=== PATIENT | male | born 1980 | race Caucasian/White ===

== ENCOUNTER 2016-08-17 16:13 | Emergency (ER) | payer BC, OTHER ==
[~2016-08-17] VITALS: Ht 180.3 cm; Wt 100.0 kg
[2016-08-17 16:31] VITALS: Ht 180.3 cm; Wt 100.0 kg
[2016-08-17] MEDS ORDERED: SOD CHLORIDE 0.9% 1,000 ML IV STA (16:57)
[2016-08-17] MEDS ORDERED: morphine 4 MG/ML VIAL IV STA (16:57)
[2016-08-17] MEDS ORDERED: ONDANSETRON 4 MG INJ IV STA (16:57)
[2016-08-17 17:26] LABS: ADD SCAN DIFF NO
[2016-08-17 17:29] LABS: BASOPHILS % 0.4 % (0.0-2.0); EOSINOPHILS # 0.2 10^3/ul (0.0-0.5); EOSINOPHILS % 3.7 % (0.0-7.0); HEMATOCRIT 46.3 % (42.0-52.0); HEMOGLOBIN 15.8 g/dl (14.0-18.0); LYMPHOCYTES # 1.6 10^3/ul (0.8-2.9); LYMPHOCYTES % 30.6 % (15.0-51.0); MEAN CORPUSCULAR HEMOGLOBIN 29.5 pg (29.0-33.0); MEAN CORPUSCULAR HGB CONC 34.1 g/dl (32.0-37.0); MEAN CORPUSCULAR VOLUME 86.4 fl (82.0-101.0); MEAN PLATELET VOLUME 9.5 fl (7.4-10.4); MONOCYTE # 0.4 10^3/ul (0.3-0.9); MONOCYTES % 8.4 % (0.0-11.0); NEUTROPHIL # 2.9 10^3/ul (1.6-7.5); NEUTROPHILS % 56.7 % (39.0-77.0); PLATELET COUNT 221 10^3/UL (140-415); RED BLOOD COUNT 5.36 10^6/ul (4.70-6.10); RED CELL DISTRIBUTION WIDTH 12.1 % (11.5-14.5); WHITE BLOOD COUNT 5.1 10^3/ul (4.8-10.8)
[2016-08-17 17:37] LABS: ADD UMIC YES; URINE BILIRUBIN (Dip) NEGATIVE (NEGATIVE); URINE BLOOD (Dip) NEGATIVE (NEGATIVE); URINE COLOR YELLOW (YELLOW); URINE GLUCOSE (Dip) NEGATIVE (NEGATIVE); URINE KETONES (Dip) TRACE (NEGATIVE); URINE LEUKOCYTE ESTERASE (Dip) NEGATIVE (NEGATIVE); URINE NITRITE (Dip) NEGATIVE (NEGATIVE); URINE TOTAL PROTEIN (Dip) TRACE (NEGATIVE); URINE UROBILINOGEN (Dip) 1.0 E.U./dL (0.1-1.0)
[2016-08-17 17:50] LABS: MUCUS,URINE MANY; URINE RBCS 0-2 /HPF (0)
[2016-08-17 17:54] LABS: ALBUMIN 5.3 g/dl (3.3-4.9); ALBUMIN/GLOBULIN RATIO 1.82; BILIRUBIN,INDIRECT 0.7 mg/dl (0-1.1); BILIRUBIN,TOTAL 0.7 mg/dl (0.2-1.3); CALCIUM 9.1 mg/dl (8.4-10.2); CREATININE 0.88 mg/dl (0.61-1.24); TOTAL PROTEIN 8.2 g/dl (6.1-8.1)
--- NOTE | 2016-08-17 18:28 | RADRPT ---
PROCEDURE: CT Head without. CLINICAL INDICATION: Seizure. TECHNIQUE: The study was performed utilizing a multi-slice, multidetector CT scanner. Direct spira l 1 mm axial sections were obtained through the head without the use of intravenous contrast materia l. 1 or more of the following dose reduction techniques were utilized: Automated exposure control, adjustment of the mA and/or kV according to patient's size, iterative reconstruction technique. Co kiya and sagittal reformations were obtained. The images were reviewed on a PACS workstation. RADIATION DOSE: CTDIvol: 43.2 mGyDLP: 847.0 mGy-cm COMPARISON: No prior studies are available for comparison. FINDINGS: There is no intracranial hemorrhage, extra-axial fluid collection, mass lesion, midline shift or hyd rocephalus. The ventricles, sulci and cisterns are within normal limits. The white matter is unrem arkable. The harding-white matter differentiation is preserved. The basal cisterns are patent. The m idline structures are intact. The orbits, calvarium and extracranial soft tissues are normal in radha earance. The visualized paranasal sinuses, mastoid air cells and middle ear cavities are normally ae rated. IMPRESSION: 1. No acute intracranial abnormality. No intracranial hemorrhage, extra-axial fluid collection, ma ss lesion or hydrocephalous. RPTAT: HGAS .Wliiam Anderson MD, MD Date Time Electronically viewed and signed by .Wiliam Anderson MD, MD on 08/17/2016 18:27 .S/
--- NOTE | 2016-08-17 18:32 | RADRPT ---
PROCEDURE: CT scan of the abdomen and pelvis without IV contrast. CLINICAL INDICATION: Abdominal pain with nausea vomiting and diarrhea. TECHNIQUE: Thin section axial, coronal and sagittal images were performed through the abdomen and pelvis without contrast. Radiation Dose: CTDI: 19.2 and DLP: 1228 One or more of the following dose reduction techniques were used: - Automated exposure control. - Adjustment of the mA and/or kV according to patient size. Use of iterative reconstruction technique. COMPARISON: Chest x-ray 04/17/2016 06:18 a.m. FINDINGS: Soft tissues: Normal. Lungs and pleural spaces: There are peripheral areas of atelectasis in the right and left lower lobe s. No pulmonary nodule or pleural effusion is identified. Heart: The heart is normal in size. No pericardial effusion is identified. The liver, common bile duct and gallbladder: There is diffuse fatty infiltration of the liver which measures 17.7 cm AP. The gallbladder surgically removed. No hepatic mass or intrahepatic biliary du ctal dilatation is identified. Gastrointestinal: There is no hiatal hernia. The stomach is normal. The small bowel loops have a n ormal caliber. There is scattered fecal material and air in the colon. There is a tiny midline umb ilical hernia. There is small to 3 mm mesenteric nodules in the right upper abdomen. There are sma ll mesenteric lymph nodes in the upper middle third of the abdomen. There are small lymph nodes med ial to the cecum. The vermiform appendix is normal. Pancreas: Normal. Kidneys, bladder and adrenal glands : The adrenal glands and kidneys are unremarkable. The urinary bladder is normal. Spleen: The spleen is enlarged measuring 13.3 cm. Lymph nodes: No enlarged periportal and retroperitoneal lymph nodes are identified. No enlarged pel cecilia sidewall or inguinal lymph nodes are identified. There is a left inguinal hernia which contains fat. Reproductive system and pelvis : Prostate gland seminal vesicles are normal. Bony elements: There are degenerative osteophytes in the mid and lower lumbar spine. There is a Jennifer morl's node impinging on the dorsal super endplate of S1. There is a mild broad dorsal disk osteoph yte complex in conjunction with disk space narrowing at L4-5. There are small ventral osteophytes a t L4-5 and L5-S1. Vasculature: Normal. IMPRESSION: 1. Mild hepatosplenomegaly. 2. Status post cholecystectomy. 3. No acute intra-abdominal process is noted. 4. Normal vermiform appendix. RPTAT:AAJJ Calixto Marshall Physician Date Time Electronically viewed and signed by Calixto Marshall Physician on 08/17/2016 18:32 KATHY/
[2016-08-17] MEDS ORDERED: ONDA-43 PO (19:05)
[2016-08-17] MEDS ORDERED: DICY10CA60 PO (19:05)
--- NOTE | 2016-08-17 19:12 | ERD ---
ER Documentation Chief Complaint Date/Time DATE: 08/17/16 TIME: 19:09 Chief Complaint MID ABD PAIN SINCE WEDNESDAY; NAUSEA, VOMITTING, DIARRHEA HPI This is a 36-year-old male presents to the ER with left upper quadrant pain that started Wednesday night. Upper quadrant pain radiates to the left lower quadrant. Patient states that pain is burning in quality and that pain is severe and constant. Patient states that he has had decreased appetite. On Wednesday he began to have nonbilious nonbloody vomiting and watery and nonbloody diarrhea. Patient denies any recent travel. He denies any fevers or chills. He denies any chest pain or shortness of breath. ROS 12 point review of systems was done, all negative except per HPI. Medications Home Meds Active Scripts Ondansetron Hcl* (Zofran*) 4 Mg Tab, 4 MG PO Q4H Y for NAUSEA AND OR VOMITING for 3 Days, TAB Prov:EZ SENIOR C 08/17/16 Dicyclomine Hcl* (Bentyl*) 10 Mg Capsule, 10 MG PO QID for 7 Days, CAP Prov:PARRISH,EZ C 08/17/16 Allergies Allergies: Coded Allergies: No Known Allergy (Unverified , 08/17/16) PMhx/Soc Medical and Surgical Hx: pt denies Medical Hx, pt denies Surgical Hx Hx Alcohol Use: No Hx Substance Use: No Hx Tobacco Use: No Smoking Status: Never smoker Physical Exam Vitals Vital Signs Date Time Temp Pulse Resp B/P Pulse Ox O2 Delivery O2 Flow Rate FiO2 08/17/16 16:31 97.6 75 19 123/63 98 Physical Exam GENERAL: The patient is well developed and appropriate for usual state of health , in no apparent distress. HEENT: Atraumatic. CHEST: Clear to auscultation bilaterally. There are no rales, wheezes or rhonchi. HEART: Regular rate and rhythm. No murmurs, clicks, rubs or gallops. ABDOMEN: Soft, nontender and nondistended. Good bowel sounds. No rebound or guarding. No gross peritonitis. No gross organomegaly or masses. No Nayak sign or McBurney point tenderness. BACK: No midline or flank tenderness. NEURO: Alert and oriented. Result Diagram: 08/17/16 1710 08/17/16 1710 Results 24 hrs Laboratory Tests Test 08/17/16 17:10 White Blood Count 5.110^3/ul Red Blood Count 5.3610^6/ul Hemoglobin 15.8g/dl Hematocrit 46.3% Mean Corpuscular Volume 86.4fl Mean Corpuscular Hemoglobin 29.5pg Mean Corpuscular Hemoglobin Concent 34.1g/dl Red Cell Distribution Width 12.1% Platelet Count 64336^3/UL Mean Platelet Volume 9.5fl Neutrophils % 56.7% Lymphocytes % 30.6% Monocytes % 8.4% Eosinophils % 3.7% Basophils % 0.4% Nucleated Red Blood Cells % 0.0/100WBC Neutrophils # 2.910^3/ul Lymphocytes # 1.610^3/ul Monocytes # 0.410^3/ul Eosinophils # 0.210^3/ul Basophils # 0.010^3/ul Nucleated Red Blood Cells # 0.010^3/ul Urine Color YELLOW Urine Clarity HAZY Urine pH 6.0 Urine Specific [place] 1.020 Urine Ketones TRACE Urine Nitrite NEGATIVE Urine Bilirubin NEGATIVE Urine Urobilinogen 1.0 E.U./dL Urine Leukocyte Esterase NEGATIVE Urine Microscopic RBC 0-2/HPF Urine Microscopic WBC 0-2/HPF Urine Mucus MANY Urine Hemoglobin NEGATIVE Urine Glucose NEGATIVE% Urine Total Protein TRACE Sodium Level 147mmol/L Potassium Level 4.0mmol/L Chloride Level 106mmol/L Carbon Dioxide Level 28mmol/L Anion Gap 17 Blood Urea Nitrogen 12mg/dl Creatinine 0.88mg/dl Glucose Level 97mg/dl Calcium Level 9.1mg/dl Total Bilirubin 0.7mg/dl Direct Bilirubin 0.00mg/dl Indirect Bilirubin 0.7mg/dl Aspartate Amino Transf (AST/SGOT) 78IU/L Alanine Aminotransferase (ALT/SGPT) 139IU/L Alkaline Phosphatase 56IU/L Total Protein 8.2g/dl Albumin 5.3g/dl Globulin 2.90g/dl Albumin/Globulin Ratio 1.82 Lipase 72U/L Current Medications Medications (Trade) Dose Ordered Sig/Jennifer Route PRN Reason Start Time Stop Time Status Last Admin Dose Admin Sodium Chloride (NS) 1,000 ml @ 1,000 mls/hr Q1H STAT IV 08/17/16 16:57 08/17/16 17:56 DC 08/17/16 17:06 Morphine Sulfate (morphine) 6 mg ONCE STAT IV 08/17/16 16:57 08/17/16 16:58 DC 08/17/16 17:06 Ondansetron HCl (Zofran Inj) 4 mg ONCE STAT IV 08/17/16 16:57 08/17/16 16:59 DC 08/17/16 17:07 Procedures/MDM Differential Diagnosis: GERD, gastritis, peptic ulcer disease, pancreatitis, cholecystitis, choledocholithiasis, biliary colic, cholangitis, Fafn-Qodp-Kohchz , ACS/MO, Pnuemonia . This is a 36-year-old male presents to the ER with left upper quadrant pain, nausea, vomiting, diarrhea. This is likely viral in etiology. Suspicion for acute abdomen is low. Patient is afebrile and well- appearing with a completely benign physical examination. Patient will be sent home with Elias. He needs to follow-up with his primary care doctor within 1-2 days return to ER sooner if symptoms worsen. My medical decision making was shared with the patient he understands and agrees with plan. Departure Diagnosis: Primary Impression: Abdominal pain Condition: Stable Patient Instructions: Abdominal Pain Additional Instructions: Call your primary care doctor TOMORROW for an appointment during the next 1-2 days.See the doctor sooner or return here if your condition worsens before your appointment time. EZ SENIOR Aug 17, 2016 19:12
[2016-08-17 19:20] VITALS: BP 120/77; PULSE 57; RESP 20; TEMP 98.5
== END 2016-08-17 19:25 | disposition home or self-care (01) ==
LOC: FTE 16:13
DX: R10.12 Left upper quadrant pain (principal); R11.2 Nausea with vomiting, unspecified
CPT/HCPCS: 36415; 70450; 74176; 80053; 81001; 83690; 85025; 96374; 96375; 99285; J2270; J2405; J7030